=== PATIENT | female | born 1985 | race Caucasian/White ===

== ENCOUNTER 2018-03-20 07:54 | Day surgery (SDC) | payer OTHER ==
[~2018-03-20 07:54] MED LIST: Dexamethasone 4 MG/ML SDV ONE; Lactated Ringers 1,000 ML ONE; Lidocaine 1% 4 ML ONE; Lidocaine 1%/Sod Bicarbonate in NS 8.4% 1 ML Syringe IDERM PRN; Midazolam 1 MG/ML 2 ML SDV ONE; Ondansetron 4 MG/2 ML SDV ONE; Propofol 200 MG/20 ML SDV ONE; Rocuronium 50 MG/5 ML Vial ONE; Scopolamine 1.5 MG Transdermal Patch TRDERM ONE; Sodium Chloride 0.9% 10 ML Syringe FLUSH PRN; ceFAZolin 1 GM Vial ONE; fentaNYL 250 MCG/5 ML SDV ONE
[2018-03-20] MEDS ORDERED: Sodium Chloride 0.9% 50 ML SDV ONE (08:16)
[2018-03-20] MEDS ORDERED: Bupivacaine 0.5% 30 ML SDV ONE (08:16)
[2018-03-20] MEDS ORDERED: Lidocaine 1% with EPINEPHrine 1:100,000 20 ML MDV ONE (08:16)
[2018-03-20] MEDS: Lactated Ringers 1,000 ML IV SCH ×2 (08:25→14:49)
--- NOTE | 2018-03-20 08:44 | PCM.PREANE ---
Preanesthetic Assessment - Anesthesia/Transfusion/Family Hx Anesthesia History: Prior Anesthesia Reaction Type of Anesthesia Reaction: Excessive Nausea/Vomiting Family History of Anesthesia Reaction: No Transfusion History: Prior Transfusion Without Reaction - Review of Systems General: No Symptoms Pulmonary: No Symptoms, Cough (Nonproductive, smoker a few a day. Last one 1200), Other (Mild asthma, does not take medication or use an inhaler. ) Cardiovascular: No Symptoms Gastrointestinal: No Symptoms Neurological: No Symptoms Other: Reports: Easy Bruising - Physical Assessment NPO Status Date: 03/19/18 Pulse: 84 O2 Sat by Pulse Oximetry: 98 Respiratory Rate: 20 Blood Pressure: 149/65 Temperature: 98.4 C Weight: 116 kg ASA Class: 2 Mental Status: Alert & Oriented x3 Airway Class: Mallampati = 2 Dentition: Reports: Missing Tooth/Teeth, Caries Thyro-Mental Finger Breadths: 3 Mouth Opening Finger Breadths: 3 ROM/Head Extension: Full Lungs: Clear to Auscultation, Normal Respiratory Effort, Decreased Breath Sounds Cardiovascular: Regular Rate, Regular Rhythm - Lab Values: Laboratory Last Values WBC 10.64 K/mm3 (3.98-10.04) H 03/19/18 11:09 RBC 4.78 M/mm3 (3.98-5.22) 03/19/18 11:09 Hgb 13.4 gm/L (11.2-15.7) 03/19/18 11:09 Hct 41.4 % (34.1-44.9) 03/19/18 11:09 MCV 86.6 fl (79.4-94.8) 03/19/18 11:09 MCH 28.0 pg (25.6-32.2) 03/19/18 11:09 MCHC 32.4 g/dl (32.2-35.5) 03/19/18 11:09 RDW Std Deviation 45.8 fL (36.4-46.3) 03/19/18 11:09 Plt Count 197 K/mm3 (182-369) 03/19/18 11:09 MPV 10.4 fl (9.4-12.3) 03/19/18 11:09 Neut % (Auto) 66.1 % (34.0-71.1) 03/19/18 11:09 Lymph % (Auto) 23.8 % (19.3-51.7) 03/19/18 11:09 [place] % (Auto) 5.9 % (4.7-12.5) 03/19/18 11:09 Eos % (Auto) 3.6 (0.7-5.8) 03/19/18 11:09 Baso % (Auto) 0.4 % (0.1-1.2) 03/19/18 11:09 Neut # (Auto) 7.04 K/mm3 (1.56-6.13) H 03/19/18 11:09 Lymph # (Auto) 2.53 K/mm3 (1.18-3.74) 03/19/18 11:09 [place] # (Auto) 0.63 K/mm3 (0.24-0.36) H 03/19/18 11:09 Eos # (Auto) 0.38 K/mm3 (0.04-0.36) H 03/19/18 11:09 Baso # (Auto) 0.04 K/mm3 (0.01-0.08) 03/19/18 11:09 Creatinine 0.8 mg/dL (0.55-1.02) 03/19/18 11:15 Est Cr Clr Drug Dosing TNP 03/19/18 11:15 Estimated GFR (MDRD) > 60 mL/min (>60) 03/19/18 11:15 Urine Color Yellow (Yellow) 03/19/18 11:09 Urine Appearance Clear (Clear) 03/19/18 11:09 Urine pH 7.0 (5.0-8.0) 03/19/18 11:09 Ur Specific [place] 1.020 (1.005-1.030) 03/19/18 11:09 Urine Protein Negative (Negative) 03/19/18 11:09 Urine Glucose (UA) Negative (Negative) 03/19/18 11:09 Urine Ketones Negative (Negative) 03/19/18 11:09 Urine Occult Blood Negative (Negative) 03/19/18 11:09 Urine Nitrite Negative (Negative) 03/19/18 11:09 Urine Bilirubin Negative (Negative) 03/19/18 11:09 Urine Urobilinogen 0.2 (0.2-1.0) 03/19/18 11:09 Ur Leukocyte Esterase Negative (Negative) 03/19/18 11:09 Urine HCG, Qual Negative (NEGATIVE) 03/19/18 11:09 Blood Type AB POSITIVE 03/19/18 11:09 Gel Antibody Screen Negative 03/19/18 11:09 - Allergies Allergies/Adverse Reactions: Allergies Allergy/AdvReac Type Severity Reaction Status Date / Time hydrocodone Allergy Rash Verified 03/19/18 12:58 - Anesthesia Plan Pre-Op Medication Ordered: Other (PONV medications) - Acknowledgements Anesthesia Type Planned: General Anesthesia Pt an Appropriate Candidate for the Planned Anesthesia: Yes Alternatives and Risks of Anesthesia Discussed w Pt/Guardian: Yes Pt/Guardian Understands and Agrees with Anesthesia Plan: Yes PreAnesthesia Questionnaire HEENT History: Reports: None Cardiovascular History: Reports: None Respiratory History: Reports: None Gastrointestinal History: Reports: Other (See Below) Other Gastrointestinal History: Lower abdominal pain [employer]ER History: Reports: Endometriosis, Polycystic Ovaries, Other (See Below) Other OB/BYN History: PCOS Musculoskeletal History: Reports: None Neurological History: Reports: None Psychiatric History: Reports: None Endocrine/Metabolic History: Reports: Obesity/BMI 30+ Hematologic History: Reports: Anemia, Blood Transfusion(s), Other (See Below) Other Hematologic History: Factor V Immunologic History: Reports: None Oncologic (Cancer) History: Reports: None Dermatologic History: Reports: None - Infectious Disease History Infectious Disease History: Reports: None - Past Surgical History Head Surgeries/Procedures: Reports: None HEENT Surgical History: Reports: Adenoidectomy, Tonsillectomy Cardiovascular Surgical History: Reports: None Respiratory Surgical History: Reports: None GI Surgical History: Reports: Cholecystectomy, Colonoscopy, EGD Female Surgical History: Reports: Other (See Below) Other Female Surgeries/Procedures: Diagnostic laparoscopy with lysis of adhesions and drainage of pelvis abscess Endocrine Surgical History: Reports: None Neurological Surgical History: Reports: None Musculoskeletal Surgical History: Reports: Arthroscopic Knee Oncologic Surgical History: Reports: None Dermatological Surgical History: Reports: None - SUBSTANCE USE Smoking Status *Q: Never Smoker Tobacco Use Within Last Twelve Months: No Second Hand Smoke Exposure: No Recreational Drug Use History: No - HOME MEDS Home Medications: Home Meds medroxyPROGESTERone Acetate [Depo-Provera] 150 mg IM ASDIRECTED 06/10/16 [ History] - CURRENT (IN HOUSE) MEDS Current Meds: Current Medications Lactated Ringer's (Ringers, Lactated) 1,000 mls @ 125 mls/hr IV ASDIRECTED DORI Stop: 03/20/18 23:00 Last Admin: 03/20/18 08:25 Dose: 125 mls/hr Lidocaine/Sodium Bicarbonate (Buffered Lidocaine 1% In Ns 8.4%) 0.25 ml IDERM ONETIME PRN PRN Reason: Prior to IV Start Stop: 03/20/18 18:00 Last Admin: 03/20/18 08:24 Dose: 0.25 ml Sodium Chloride (Saline Flush) 10 ml FLUSH ASDIRECTED PRN PRN Reason: Keep Vein Open Stop: 03/20/18 18:00 Discontinued Medications Bupivacaine HCl (Marcaine 0.5%) Confirm Administered Dose 30 ml .ROUTE .STK-MED ONE Stop: 03/20/18 08:17 Cefazolin Sodium (Ancef) Confirm Administered Dose 2 gm .ROUTE .STK-MED ONE Stop: 03/20/18 07:49 Dexamethasone (Dexamethasone) Confirm Administered Dose 4 mg .ROUTE .STK-MED ONE Stop: 03/20/18 07:49 Fentanyl (Sublimaze) Confirm Administered Dose 250 mcg .ROUTE .STK-MED ONE Stop: 03/20/18 07:49 Lactated Ringer's (Ringers, Lactated) Confirm Administered Dose 1,000 mls @ as directed .ROUTE .STK-MED ONE Stop: 03/20/18 07:49 Lidocaine HCl (Xylocaine-Mpf 1%) Confirm Administered Dose 4 mls @ as directed .ROUTE .STK-MED ONE Stop: 03/20/18 07:49 Lidocaine/Epinephrine (Xylocaine 1% With Epinephrine 1:100,000) Confirm Administered Dose 20 ml .ROUTE .STK-MED ONE Stop: 03/20/18 08:17 Midazolam HCl (Versed 1 Mg/Ml) Confirm Administered Dose 2 mg .ROUTE .STK-MED ONE Stop: 03/20/18 07:49 Ondansetron HCl (Zofran) Confirm Administered Dose 4 mg .ROUTE .STK-MED ONE Stop: 03/20/18 07:49 Propofol (Diprivan 20 Ml) Confirm Administered Dose 400 mg .ROUTE .STK-MED ONE Stop: 03/20/18 07:49 Rocuronium [place] (Zemuron) Confirm Administered Dose 50 mg .ROUTE .STK-MED ONE Stop: 03/20/18 07:49 Scopolamine (Transderm-Scop) 1.5 mg TRDERM ONETIME ONE Stop: 03/20/18 07:01 Last Admin: 03/20/18 08:35 Dose: 1.5 mg Sodium Chloride (Normal Saline) Confirm Administered Dose 50 ml .ROUTE .STK-MED ONE Stop: 03/20/18 08:17
[2018-03-20] MEDS ORDERED: Propofol 200 MG/20 ML SDV ONE ×2 (08:52→10:31)
[2018-03-20] MEDS ORDERED: Ketamine 500 mg/10 ML MDV ONE (10:10)
[2018-03-20] MEDS ORDERED: Dexamethasone 4 MG/ML SDV ONE (10:13)
[2018-03-20] MEDS ORDERED: Rocuronium 50 MG/5 ML Vial ONE (10:19)
[2018-03-20] MEDS ORDERED: ceFAZolin 1 GM Vial ONE (10:24)
[2018-03-20] MEDS ORDERED: Albuterol 6.7 GM Inhaler INH ONE (10:31)
[2018-03-20] MEDS ORDERED: Haloperidol Lactate 5 MG/ML SDV IVPUSH ONE (10:44)
[2018-03-20] MEDS ORDERED: HYDROmorphone 0.5 MG/0.5 ML Syringe IVPUSH PRN (10:44)
[2018-03-20] MEDS ORDERED: Albuterol 0.083% 2.5 MG/3 ML Neb Soln NEB ONE (10:44)
[2018-03-20] MEDS ORDERED: Promethazine 12.5 MG in Sodium Chloride 0.9% 50 ML IV PRN (10:44)
[2018-03-20] MEDS ORDERED: diphenhydrAMINE 50 MG/ML SDV IVPUSH PRN (10:44)
[2018-03-20] MEDS ORDERED: fentaNYL 100 MCG/2 ML SDV IVPUSH PRN (10:44)
[2018-03-20] MEDS ORDERED: Ketorolac 30 MG/ML SDV ONE (11:10)
[2018-03-20] MEDS ORDERED: Neostigmine Methylsulfate 1 MG/ML 5 ML Syringe ONE (11:13)
[2018-03-20] MEDS ORDERED: HYDROmorphone 0.5 MG/0.5 ML Syringe ONE (11:21)
[2018-03-20] MEDS ORDERED: Ondansetron 4 MG/2 ML SDV IVPUSH PRN (11:24)
[2018-03-20] MEDS ORDERED: Acetaminophen/oxyCODONE 325-5 MG Tab PO PRN (11:24)
[2018-03-20] MEDS ORDERED: Lactated Ringers 1,000 ML ONE (11:25)
[2018-03-20] MEDS ORDERED: Ketorolac 30 MG/ML SDV IVPUSH SCH (11:30)
--- NOTE | 2018-03-20 11:31 | PCM.OPNOTE ---
- General Post-Op/Procedure Note Date of Surgery/Procedure: 03/20/18 Operative Procedure(s): Laparoscopically assisted vaginal hysterectomy with right salpingo-oophorectomy and left salpingectomy Findings: Uterus tubes and ovaries were essentially normal in appearance. Patient scarring right uterosacral ligament possibly secondary to endometriosis. The appendix appeared flaccid noninflamed. Liver edge was noninflamed. Cervix is multiparous.. It appeared that the patient had had previous cervical surgery. Pre Op Diagnosis: 1. Pelvic pain. 2. Endometriosis Post-Op Diagnosis: Same Anesthesia Technique: General ET Tube Other Anesthesia Type: Lidocaine quarter percent with [id number] mLlocal Primary Surgeon: Serge Patel Secondary Surgeon: Yinka Mcknight Anesthesia Provider: Lorena Cornell Product Development Technician: Amy Burks Reason Product Development Technician Was Necessary: Retraction, assistance, patient safety, quality of care Role of Product Development Technician: Same Pathology: Uterus, bilateral fallopian tubes and right ovary as 1 specimen Fluid Replacement, Intraop: 2,000 Output, Urine Amount: 100 EBL in mLs: 100 Drain/Tube Comments:: Indwelling bladder catheter during surgery only Complications: None Condition: Good Free Text/Narrative:: Surgery duration: 75 minutes The patient was taken to the operating room placed in supine position on the operating table. She received 2 g of Ancef preoperatively for infection prophylaxis. She had signed consent previously. After adequate anesthesia patient was placed in a dorsal lithotomy position. It should be noted she had sequential compression stockings in place for DVT prophylaxis. A uterine manipulator was placed as was an latex free indwelling bladder catheter. This was done after adequate prepping and draping. The patient was placed in supine position and four laparoscopic port sites were developed. Marcaine 0.5% approximately 3-5 mL was injected at each site. Varies needle was placed and pneumoperitoneum was achieved with 3 L of CO2. Infraumbilical, suprapubic and 2 lateral port sites were developed. Under laparoscopic guidance the upper portion of the hysterectomy was performed. The right infundibulopelvic ligament was elevated and crossclamped using the endoseal computerized cautery device. The round ligament was taken down to the broad ligament. At this time attention was turned to the left side and the left fallopian tube and the triple ligament were then taken down in a similar fashion. Left ovary was conserved per patient desire. Broad ligament was taken down to the area of the uterine vasculature. Uterine vasculature was developed in the usual fashion using the cautery system. Both uterine arteries were identified and developed. Vaginal approach was then undertaken. The patient was placed in the dorsal lithotomy position and a weighted speculum was placed in the vagina. The cervix was injected with lidocaine quarter percent with epinephrine 20 mL total. A full circumference incision was made through the epithelium around the cervix. Posterior cul-de-sac was entered without problems. The left uterosacral ligament and then the right uterosacral were taken down using the Enseal vessel closure system. The cardinal ligament and what remained of the uterine vascular vessels and cervical branches of the vessels were managed with the Enseal vessel closure system on each side. Anterior cul-de-sac was then entered and the remaining portion of broad ligament on the right side and a small portion of broad ligament remaining on the left side were then developed in the usual fashion. Uterus was then removed. At this point the uterus was completely removed and sent as specimen. The vaginal cuff was then run with a locked running suture of 0 Monocryl from the 2 o'clock position to the 10 o'clock position. The vagina was closed with a running locked suture of 0 Monocryl. Hemostasis was confirmed this time and no bleeding was noted. Laparoscopy was then performed to ensure hemostasis. Pneumoperitoneum was reestablished and the laparoscope was placed. The pelvis was found to be hemostatically intact. There was no evidence of any bowel adhesion to the vaginal cuff area noted. The sleeves were removed under direct visualization and the upper sleeve was removed after reversal of the pneumoperitoneum. Each of these sites were closed with a single interrupted suture of 3-0 Monocryl. They were further approximated with Dermabond skin glue. At this point the patient was awakened from general endotracheal anesthesia. The Méndez catheter had been removed by this time. She is discharged from the operating room in good condition.
[2018-03-20] MEDS ORDERED: Midazolam 1 MG/ML 2 ML SDV ONE (11:35)
--- NOTE | 2018-03-20 12:26 | PCM.POSTAN ---
POST ANESTHESIA ASSESSMENT - MENTAL STATUS Mental Status: Alert, Oriented - VITAL SIGNS Pulse Rate: 60 SaO2: 100 Resp Rate: 17 Blood Pressure: 117/66 Temperature: 36.6 C - RESPIRATORY Respiratory Status: Respiratory Rate WNL, Airway Patent, O2 Saturation Stable, Supplemental Oxygen - CARDIOVASCULAR CV Status: Pulse Rate WNL, Blood Pressure Stable - GASTROINTESTINAL GI Status: No Symptoms - POST OP HYDRATION Hydration Status: Adequate & Stable
--- NOTE | 2018-03-20 13:09 | PCM48HPAN ---
Post Anesthesia Note - EVALUATION WITHIN 48HRS OF ANESTHETIC Vital Signs in Normal Range: Yes Patient Participated in Evaluation: Yes Respiratory Function Stable: Yes Airway Patent: Yes Cardiovascular Function Stable: Yes Hydration Status Stable: Yes Pain Control Satisfactory: Yes Nausea and Vomiting Control Satisfactory: Yes Mental Status Recovered: Yes
[2018-03-20] MEDS ORDERED: Ibuprofen 600 MG Tab PO PRN ×2 (15:01→17:20)
[2018-03-20 18:46] VITALS: BP 129/73
== END 2018-03-20 18:43 | disposition home or self-care (01) ==
LOC: JD.SDS 07:54
PROVIDERS: ATTEND Obstetrics & Gynecology
DX: N80.9 Endometriosis, unspecified (principal); N87.9 Dysplasia of cervix uteri, unspecified; N72 Inflammatory disease of cervix uteri; N83.8 Other noninflammatory disorders of ovary, fallopian tube and broad ligament; N83.01 Follicular cyst of right ovary; D64.9 Anemia, unspecified; K21.9 Gastro-esophageal reflux disease without esophagitis; E66.01 Morbid (severe) obesity due to excess calories; Z68.42 Body mass index [BMI] 45.0-49.9, adult; Z88.5 Allergy status to narcotic agent; Z79.899 Other long term (current) drug therapy
CPT/HCPCS: 36415; 58552; 81003; 81025; 82565; 82570; 85025; 86850; 86900; 86901; A9270; C9399; J0131; J0690; J1100; J1170; J1885; J2250; J2405; J2704; J2710; J3010; J3490; J7120; 00944; J2001

== ENCOUNTER 2024-07-09 21:17 | Emergency (ER) | payer SELFPAY ==
[2024-07-09 21:49] VITALS: BP 136/85; PULSE 85
[2024-07-09] MEDS ORDERED: Sodium Chloride 0.9% 10 ML Syringe FLUSH PRN (22:01)
[2024-07-09] MEDS ORDERED: Naloxone 0.4 MG/ML SDV IVPUSH PRN (22:08)
[2024-07-09] MEDS: HYDROmorphone 0.5 MG/0.5 ML Syringe IVPUSH ONE (22:18)
[2024-07-09 22:19] LABS: BASOPHILS ABSOLUTE AUTO 0.1 K/mm3 (0.0-0.2); BASOPHILS PERCENT AUTO 0.4 % (0.0-1.0); EOSINOPHILS ABSOLUTE AUTO 0.5 K/mm3 (0.0-0.4); EOSINOPHILS PERCENT AUTO 3.5 % (0.0-6.0); HEMATOCRIT 41.2 % (37.0-47.0); HEMOGLOBIN 13.7 gm/dl (12.0-16.0); IMMATURE GRAN ABSOLUTE AUTO 0.09 K/mm3 (0.00-0.05); IMMATURE GRAN PERCENT AUTO 0.6 % (0.0-0.4); LYMPHOCYTES ABSOLUTE AUTO 2.3 K/mm3 (1.0-4.8); LYMPHOCYTES PERCENT AUTO 15.4 % (24.0-44.0); MEAN CORPUSCULAR HEMOGLOBIN 30.6 pg (28.0-32.0); MEAN CORPUSCULAR HGB CONC 33.3 g/dl (32.0-36.0); MEAN CORPUSCULAR VOLUME 92.2 fl (83.0-99.0); MEAN PLATELET VOLUME 9.9 fl (9.4-12.3); MONOCYTES ABSOLUTE AUTO 0.8 K/mm3 (0.0-0.8); MONOCYTES PERCENT AUTO 5.1 % (0.0-8.0); PLATELET COUNT,PLT 171 K/mm3 (150-400); RED BLOOD CELL COUNT 4.47 M/mm3 (4.10-5.30); WHITE BLOOD CELL COUNT,WBC 14.71 K/mm3 (3.9-11.3)
[2024-07-09] MEDS: Ondansetron 4 MG/2 ML SDV IVPUSH ONE (22:20)
[2024-07-09 22:45] LABS: HCG QUALITATIVE,SERUM NEGATIVE (NEGATIVE)
[2024-07-09 22:46] LABS: LACTIC ACID 1.1 mmol/L (0.4-2.0)
[2024-07-09 22:47] LABS: A/G RATIO 1.3 (1-2); ALANINE AMINOTRANSFERASE,ALT 27 U/L (14-59); ALKALINE PHOSPHATASE 69 U/L (46-116); ANION GAP 14.4 (5-15); ASPARTATE AMNIOTRANSFERASE,AST 15 U/L (15-37); BILIRUBIN TOTAL 0.6 mg/dL (0.2-1.0); BLOOD UREA NITROGEN,BUN 6 mg/dL (7-18); BUN/CREATININE RATIO 7.5 (14-18); CALCIUM 9.4 mg/dL (8.5-10.1); CARBON DIOXIDE,CO2 24 mEq/L (21-32); CHLORIDE,CL 102 mEq/L (98-107); CREATININE 0.8 mg/dL (0.55-1.02); EST CRCL DRUG DOSING (CG) 80.72 mL/min; ESTIMATED GFR 95 mL/min (>60); GLUCOSE RANDOM 98 mg/dL (70-99); POTASSIUM,K 3.4 mEq/L (3.5-5.1); PROTEIN TOTAL,TP 7.2 g/dl (6.4-8.2); SODIUM,NA 137 mEq/L (136-145)
[2024-07-09 22:49] LABS: PRO B-TYPE NATRIUR PEPT,BNPPRO 47 pg/mL (0-125)
[2024-07-09 22:53] LABS: TROPONIN I HIGH SENSITIVITY < 4 pg/mL (<=51)
[2024-07-09] MEDS: Iopamidol 612 MG/ML 100 ML Bottle IVPUSH ONE (22:59)
[2024-07-10 00:21] LABS: APPEARANCE,URINE CLEAR (Clear); BILIRUBIN,URINE NEGATIVE (Negative); COLOR,URINE YELLOW (Yellow); GLUCOSE,URINE NEGATIVE (Negative); KETONES,URINE NEGATIVE (Negative); LEUKOCYTE ESTERASE,URINE NEGATIVE (Negative); NITRITE,URINE NEGATIVE (Negative); OCCULT BLOOD,URINE NEGATIVE (Negative); PROTEIN,URINE NEGATIVE (Negative); UROBILINOGEN,URINE 0.2 (0.2-1.0)
== END 2024-07-10 03:07 | disposition home or self-care (01) ==
LOC: JD.ED 21:17
DX: R10.12 Left upper quadrant pain (principal); J45.909 Unspecified asthma, uncomplicated; E66.9 Obesity, unspecified; Z68.31 Body mass index [BMI] 31.0-31.9, adult; Z90.49 Acquired absence of other specified parts of digestive tract; Z90.710 Acquired absence of both cervix and uterus; Z88.5 Allergy status to narcotic agent; Z88.6 Allergy status to analgesic agent; Z79.52 Long term (current) use of systemic steroids; Z79.899 Other long term (current) drug therapy
CPT/HCPCS: 36415; 71260; 74177; 76830; 80053; 81003; 83605; 83690; 83880; 84484; 84703; 85025; 93005; 96374; 96375; 99285; J2405; Q9967